=== PATIENT | female | born 1970 | race Caucasian/White ===

== ENCOUNTER 2023-02-23 22:10 | Emergency (ER) | payer BC, SELFPAY ==
--- NOTE | 2023-02-23 22:29 | CRLHL7_ITS ---
For Patients: As a result of the Century Cures Act, medical imaging exams and procedure reports are released immediately into your electronic medical record. You may view this report before your referring provider. If you have questions, please contact your health care provider. INDICATION: Inversion injury, lateral pain. TECHNIQUE: Three views. FINDINGS: Oblique, nondisplaced fracture distal fibula with associated soft tissue swelling. In addition, equivocal linear lucency along the distal lateral tibia, on the oblique view, probably not fracture. Well corticated, round bone density distal to the lateral malleolus does not appear acute. No other acute bone or joint abnormality demonstrated. Dictated by Luis Kirk MD @ 02/24/2023 12:04:57 AM (Electronically Signed)
[2023-02-23 22:30] VITALS: BP 135/82; PULSE 103; RESP 18; TEMP 36.6; O2SAT 98; BMI 37.5
[2023-02-23 22:32] VITALS: PULSE 89
[2023-02-23] MEDS: HYDROCODONE-ACETAMIN 5-325 MG 1 TAB 2 TAB PO (22:37)
--- OUTSIDE RECORDS SUMMARY | 2023-02-23 23:45 | XMS_ITS | Continuity of Care Document ---
Author Name Unknown Organization [facility] Address [address] [place] [address] Phone Care Team Providers Care Pacs Specialist Name Role Phone Davi DOOLEY, PhD, Bill Unavailable Unavai lable Allergies, Adverse Reactions, Alerts Substance Reaction Status Criticality rosuvastatin Headache Active No Information atorvastatin Active No Information Medications Medication Instructions Dosage Effective Dates (start - stop) Status Comments VITAMIN C (unknown strength) Not Available - Active MONODOX (unknown strength) Not Available - Active MIRENA (unknown strength) Not Available - Active PRAVASTATIN SODIUM (unknown strength) Not Available - Active MEGARED OMEGA-3 KRILL OIL (unknown strength) Not Available - Active HUMIRA(CF) (unknown strength) Not Available - Active VITAMIN B-12 (unknown strength) Not Available - Active PROZAC (unknown strength) Not Available - Active COENZYME Q10 (unknown strength) Not Available - Active VITAMIN D3 (unknown strength) Not Available - Active Procedures Procedure Date Postop Followup Visit Lami/Discectomy, Lumbar HNP - PA 2021 Lami/Discectomy, Lumbar HNP Office/Outpatient Visit,Est, Mod 2021 Office/Outpatient Visit,Est, Mod 2021 Office/Outpatient Visit,New, Mod 2021 Advance Directives Directive Yes / No Effective Date File Name No Information Encounters Encounter Description Practice Location Reason(s) For Visit Diagnoses Date Provider Providers Copied on Encounter [facility], [address], [place], [id number], [place] tel:[phone] [facility] No Information 3 Davi Khan. [facility] [place], [address], [place], [address], [place]. [phone] [facility], [address], [place], [id number], [place] tel:[phone] [facility] [place] Encounter for other specified surgical aftercare 2 Petey Isaiah. [facility] [place], [address], [place], [place], [id number] , [place]. [phone] Referring Provider: Cassandra Gallagher, [employer] [address], [place], [address]. tel:[phone] [facility], [address], [place], [id number], [place] tel:[phone] [facility] No Information 2 Petey Colon. [facility], [address], [place], [place], [id number] , [place]. [phone] Referring Provider: Cassandra Gallagher, [employer] [address], [place], [address]. tel:[phone] [facility], [address], [place], [place], [id number], [place] tel:[phone] [facility] No Information 2 Davi Khan. [facility], [address], [facility] [place], [address], [place]. [phone] Referring Provider: Cassandra Gallagher [employer] [address], [place], [address]. tel:[phone] Office/Outpat ient Visit,Est, Mod [facility], [address], [place], [id number], [place] tel:[phone] [facility] Intervertebral disc disorders with radiculopathy, lumbar region 2 Davi Khan. [facility] [place], [address], [place], [address], [place]. [phone] Referring Provider: Cassandra Gallagher, [place] [facility] [address], [place], [address]. tel:[phone] Office/Outpat ient Visit,Est, Mod [facility], [address], [place], [id number], [place] tel:[phone] [facility] Other intervertebral disc displacement, lumbar region 2 Petey Barron . [facility] [place], [address] [place] [address] [address], [facility] [place], [address], [place]. tel:[phone] Referring Provider: Cassandra Gallagher, [place] [facility] [address], [place], [address]. tel:[phone] Office/Outpat ient Visit,New, Mod [facility], [address], [place], [place], [id number], [place] tel:[phone] [facility] Other intervertebral disc displacement, lumbar region 2 Petey Barron . [facility], [address] [place] [address] [address], [place], [address], [place]. tel:[phone] Referring Provider: Cassandra Gallagher, [place] [facility] [address], [place], [address]. tel:[phone] Family History Family Member Type Diagnosis Age At Onset No Information Payers Payer name Insurance type Covered alliance party ID Mago casanova([place] [id number] [place] [id number] Social History Type Description Quantity Date Captured Comments Sex Female Smoking Status No Information Chief Complaint And Reason For Visit No Information Reason For Referral Reason For Referral No Information History Of Present Illness Encounter Date Complaint History Of Prese nt Illness No Information Functional Status Date Functional Assessmen t No Information Instructions Date Instruction Additional Infor mation No Information Assessments Type Assessment Date No Information Patient Care Teams Name Effective Dates (start - stop) Status Members No Information
--- OUTSIDE RECORDS SUMMARY | 2023-02-23 23:45 | XMS_ITS | Continuity of Care Document ---
Author Name Unknown Organization [facility] Address [address] [place] [address] Phone Care Team Providers Care Gas Regulator Repairer Name Role Phone Davi DOOLEY, PhD, Bill [...] Copied on Encounter [facility], [address], [place], [id number], [place] tel:[phone] [facility] No Information 3 Davi Khan. [facility] [place], [address], [place], [address], [place]. [phone] [facility], [address], [place], [place], [id number], [place] tel:[phone] [facility] [place] Encounter for other specified surgical aftercare 2 Petey Isaiah. [facility] [place], [address], [place], [place], [id number] , [place]. [phone] Referring Provider: Cassandra Gallagher, [employer] [address], [place], [address]. tel:[phone] [facility], [address], [place], [id number], [place] tel:[phone] [facility] No Information 2 Petey Colon. [facility], [address], [place], [place], [id number] , [place]. [phone] Referring Provider: Cassandra Gallagher, [employer] [address], [place], [address]. tel:[phone] [facility], [address], [place], [place], [id number], [place] tel:[phone] [facility] No Information 2 Davi Khan. [facility], [address], [facility] [place], [address], [place]. [phone] Referring Provider: Cassandra Gallagher [employer] [address], [place], [address]. tel:[phone] Office/Outpat ient Visit,Est, Mod [facility], [address], [place], [id number], [place] tel:[phone] [facility] Intervertebral disc disorders with radiculopathy, lumbar region 2 Davi Khan. [facility] [place], [address], [place], [address], [place]. [phone] Referring Provider: Cassandra Gallagher, [employer] [facility] [address], [place], [address]. tel:[phone] Office/Outpat ient Visit,Est, Mod [facility], [address], [place], [id number], [place] tel:[phone] [facility] Other intervertebral disc displacement, lumbar region 2 Petey Barron . [facility] [place], [address] [place] [address] [address], [facility] [place], [address], [place]. tel:[phone] Referring Provider: Cassandra Gallaghre, [employer] [facility] [address], [place], [address]. tel:[phone] Office/Outpat ient Visit,New, Mod [facility], [address], [place], [id number], [place] tel:[phone] [facility] Other intervertebral disc displacement, lumbar region 2 Petey Barron . [facility], [address] [place] [address] [address], [place], [address], [place]. tel:[phone] Referring Provider: Cassandra Gallagher, [employer] [facility] [address], [place], [address]. tel:[phone] Family History Family Member Type Diagnosis Age At Onset No Information Payers Payer name Insurance type Covered republican ID Mago [place] [id number] [place] [id number] Social History Type Description Quantity Date Captured [...]
[2023-02-24 00:13] VITALS: BP 125/81; PULSE 94; RESP 18; TEMP 36.6; O2SAT 98
[2023-02-24 00:25] VITALS: BP 118/79; PULSE 96; RESP 18; TEMP 36.9
--- NOTE | 2023-02-25 12:32 | ED_ITS ---
HPI - General Adult General Chief complaint: Extremity Pain/Injury, Lower Stated complaint: fall, right ankle injury, vomiting Time Seen by Provider: 02/23/23 22:35 History of Present Illness HPI narrative: 2100 rolled ankle laterally stepping off last stair. pain /. took 800 ibuprofen. 52-year-old woman accompanied by family to the emergency department with concern of right ankle injury and pain. About an hour and half prior to triage she stepped off the last step and describes an inversion injury. Did take some ibuprofen. Is still having a great deal pain. She says that she has never broken anything before. No other injury sustained. No loss of sensation. Related Data Home Medications Medication Instructions Recorded Confirmed cetirizine .ROUTE 02/23/23 fluoxetine 20 mg capsule 20 mg PO DAILY 02/23/23 02/23/23 pravastatin 20 mg tablet 20 mg PO DAILY 02/23/23 02/23/23 adalimumab 40 mg/0.4 mL 40 mg subcut 02/25/23 02/25/23 subcutaneous pen kit (Humira(CF) Pen) clindamycin phosphate 1 % topical topical BID 02/25/23 02/25/23 gel cyanocobalamin (vitamin B-12) 1,000 mcg IM Q2W 02/25/23 02/25/23 1,000 mcg/mL injection solution doxycycline monohydrate 100 mg 100 mg PO BID 02/25/23 02/25/23 capsule fluticasone propionate 50 1 spray intranasal BID 02/25/23 02/25/23 mcg/actuation nasal spray,suspension nirmatrelvir 300 mg (150 mg 0 ea PO 02/25/23 02/25/23 x2)-ritonavir 100 mg tablet,dose pack (Paxlovid) ondansetron 4 mg disintegrating 4 mg PO Q8H 02/25/23 02/25/23 tablet semaglutide 0.25 mg or 0.5 mg (2 mg subcut 02/25/23 02/25/23 mg/1.5 mL) subcutaneous pen injector semaglutide 1 mg/dose (4 mg/3 mL) mg subcut 02/25/23 02/25/23 subcutaneous pen injector (FlowMetric) syringe with needle 3 mL 25 x 1 #100 ea 02/25/23 02/25/23/2 (BD Luer-Amrita Syringe) tobramycin 0.3 %-dexamethasone 0.1 drp ophthalmic (eye) DAILY 02/25/23 02/25/23 % eye drops,suspension tretinoin 0.1 % topical cream applic topical QPM 02/25/23 02/25/23 Allergies Allergy/AdvReac Type Severity Reaction Status Date / Time No Known Drug Allergies Allergy Verified 02/23/23 22:33 Review of Systems Status of ROS: Reports: 6 or more systems reviewed and unremarkable except as noted in History and below [facility] Medical History No significant past medical history Surgical History (Updated 02/24/23 @ 00:12 by Frankie Ferguson RN) No significant past surgical history Social History Smoking Status: Never smoker Second hand tobacco smoke exposure: No How often do you have a drink containing alcohol: never How often do you have six or more drinks on one occasion: Never AUDIT-C Alcohol total score: 0 Exam Narrative: Exam Narrative: Pleasant. Starts to tear up a little bit. Clearly uncomfortable. Has right leg propped on a pillow. Fully alert. Breathing easily. Good pulses peripherally/well perfused. Examination of the right leg in question shows moderate swelling maybe a little deformity at the lateral malleolus. Very tender to palpation here. No medial malleolar pain. Const: Documenting provider has reviewed patient's vital signs: yes Course Vital Signs Vital signs: Initial Vital Signs Temperature 97.9 F 02/23/23 22:30 Temperature Source Temporal Artery Scan 02/23/23 22:30 Pulse Rate 103 H 02/23/23 22:30 Respiratory Rate 18 02/23/23 22:30 Blood Pressure 135/82 02/23/23 22:30 Blood Pressure Mean 99 02/23/23 22:30 Blood Pressure Position Sitting 02/23/23 22:30 Pulse Oximetry 98 02/23/23 22:30 Oxygen Delivery Method Room Air 02/23/23 22:30 Vital Signs Temperature 97.9 F 02/23/23 22:30 Pulse Rate 103 H 02/23/23 22:30 Respiratory Rate 18 02/23/23 22:30 Blood Pressure 135/82 02/23/23 22:30 Pulse Oximetry 98 02/23/23 22:30 Oxygen Delivery Method Room Air 02/23/23 22:30 Temperature 98.4 F 02/24/23 00:25 Pulse Rate 96 02/24/23 00:25 Respiratory Rate 18 02/24/23 00:25 Blood Pressure 118/79 02/24/23 00:25 Pulse Oximetry 98 02/24/23 00:13 Oxygen Delivery Method Room Air 02/24/23 00:13 Medical Decision Making MDM Narrative Medical decision making narrative: X-rays were already ordered by the time I had seen this patient. Had also ordered 2 tabs of [place]. Appropriately so as by my read I see an oblique distal fibular fracture. Mortise appears to be maintained. Pain is improved though still rather significant. I am not sure that would tolerate a cam walker. I imagine that she will be in this eventually but today Maged Oreilly/stirrup splint probably best option. Discussed plan with [facility]opedics injection molding process technician. They concur. Ms. Desai has crutches at home. I placed a padded ortho glass stirrup splint. See patient discharge plan. Discharge Plan Discharge Clinical Impression: Ankle fracture Patient Disposition: Home w/ Parent or Adult Condition: Stable Additional Instructions: Elevate for comfort. I suppose could carefully unwrap as well and ice it if you would like. Can take up to 800 mg of ibuprofen or up to 1000 mg of acetaminophen per dose. Alternative to the ibuprofen could be up to 500 mg of naproxen 2 times daily. Percocet from [facility]. Remember that each tablet of Percocet contains 325 mg of acetaminophen. Expect a call on Saturday from Orthopedics. Their phone number is [phone]. You can call them if you have not heard from them by noon to schedule an appointment probably middle to late next week. And then use your crutches. Prescriptions: No Action (DME) BD Luer-Amrita Syringe 3 mL 25 x 1 1/2 syringe See Rx Instructions .ROUTE Q2W Qty: 100 Rx Instructions: As directed doxycycline monohydrate 100 mg capsule 100 mg PO BID Ozempic 1 mg/dose (4 mg/3 mL) pen injector subcut cyanocobalamin (vitamin B-12) 1,000 mcg/mL solution 1,000 mcg IM Q2W clindamycin phosphate 1 % gel topical BID Humira(CF) Pen 40 mg/0.4 mL pen injector kit 40 mg subcut Paxlovid 300 mg (150 mg x 2)-100 mg tablets,dose pack 0 ea PO fluticasone propionate 50 mcg/actuation spray,suspension 1 spray intranasal BID tobramycin-dexamethasone 0.3-0.1 % drops,suspension ophthalmic (eye) DAILY Ozempic 0.25 mg or 0.5 mg(2 mg/1.5 mL) pen injector subcut tretinoin 0.1 % cream topical QPM ondansetron 4 mg tablet,disintegrating 4 mg PO Q8H pravastatin 20 mg tablet 20 mg PO DAILY fluoxetine 20 mg capsule 20 mg PO DAILY cetirizine [Zyrtec] .ROUTE Follow Up/Referrals: Provider,Not a Local [Primary Care Provider] - Stand Alone Forms: [facility] Info Instructions
== END 2023-02-24 00:27 | disposition home or self-care (01) ==
PROVIDERS: Emergency Provider Family Medicine
DX: S82.891A Other fracture of right lower leg, initial encounter for closed fracture (principal); X58.XXXA Exposure to other specified factors, initial encounter
CPT/HCPCS: 29515; 73610; 99283; 99284; A9270

== ENCOUNTER 2023-07-05 15:15 | Outpatient (RCR) | payer BC, SELFPAY | END 2023-09-20 13:56 | disposition home or self-care (01) | PROVIDERS: Visit Provider Orthopaedic Surgery | DX: S82.64XD Nondisplaced fracture of lateral malleolus of right fibula, subsequent encounter for closed fracture with routine healing (principal); M25.571 Pain in right ankle and joints of right foot; R60.0 Localized edema; R26.9 Unspecified abnormalities of gait and mobility; Z74.09 Other reduced mobility; R29.898 Other symptoms and signs involving the musculoskeletal system; R26.81 Unsteadiness on feet; Z51.89 Encounter for other specified aftercare | CPT/HCPCS: 97110; 97140; 97162 ==